=== PATIENT | male | born 1955 | race Two or more races ===

== ENCOUNTER 2024-07-18 07:46 | Inpatient (IN) | payer OTHER ==
[~2024-07-18] VITALS: Ht 190.5 cm; Wt 122.9 kg
[2024-07-18 08:55] LABS: HEMATOCRIT 36.2 % (39.0-48.0); HEMOGLOBIN 12.5 g/dL (13-16.00); MEAN CELL VOLUME 86.3 fL (80.0-100.00); MEAN CORPUSCULAR HEMOGLOBIN 29.8 pg (27.00-32.0); MEAN CORPUSCULAR HGB CONC 34.5 g/dl (32.0-36.0); PLATELET COUNT 175 K/uL (150-450); RED CELL DISTRIBUTION WIDTH 14.4 % (11.5-14.5)
[2024-07-18 09:14] LABS: ERYTHROCYTE SEDIMENTATION RATE 20 mm/hr
[2024-07-18] MEDS ORDERED: MetFORMIN HCL 500 MG TABLET PO SCH (09:24)
[2024-07-18] MEDS ORDERED: OxyCODONE HCL/APAP UD (PERCOCET) PO PRN (09:30)
[2024-07-18] MEDS ORDERED: SODIUM CHLORIDE 0.45 % 1,000 ML IV SCH (09:30)
[2024-07-18 09:33] LABS: URINE APPEARANCE Clear; URINE BILIRRUBIN Negative (NEGATIVE); URINE BLOOD Negative; URINE COLOR Yellow; URINE GLUCOSE Negative (NEGATIVE); URINE KETONE Trace (NEGATIVE); URINE LEUKOCYTE Negative; URINE NITRATE Negative; URINE PROTEIN Negative (NEGATIVE); URINE UROBILINOGEN 0.2 E.U./dl
[2024-07-18 09:39] LABS: URINE EPITHELIAL CELLS 2.9 uL (0.0-38.8); URINE RBC 2.1 uL (0.0-20.8)
[2024-07-18 09:41] LABS: URINE BACTERIA 3.7 uL (0.0-1933); URINE WBC 1.6 uL (0.0-23.2)
[2024-07-18] MEDS ORDERED: ACETAMINOPHEN 500 MG GEL..CAP PO PRN (09:45)
[2024-07-18 09:48] LABS: ALBUMIN 4.3 gm/dL (3.4-5.0); BILIRUBIN TOTAL 0.6 mg/dL (0.3-1.2); C-REACTIVE PROTEIN 0.53 MG/DL (0.00-0.29); CALCIUM 9.7 mg/dL (8.5-10.1); CREATININE SERUM 1.33 mg/dL (0.70-1.30); GFR 53.63; GLOBULINA 3.4 G/DL (2.4-3.5); POTASSIUM 4.56 mEq/L (3.5-5.1); TOTAL PROTEIN 7.7 gm/dL (6.4-8.2); URIC ACID 6.7 mg/dL (3.5-8.5)
[2024-07-18] MEDS ORDERED: LINEZOLID IN DEXTROSE 5% 600 MG/300 ML PIGGYBAG IV NR (10:46)
[2024-07-18] MEDS ORDERED: LACTOBACILLUS ACIDOPHILUS 1 CAP CAP PO SCH (12:00)
[2024-07-18 12:13] VITALS: BP 137/81
[2024-07-18 15:40] VITALS: BP 124/80; O2SAT 98
[2024-07-18] MEDS ORDERED: FAMOtidine 20 MG TABLET PO SCH (17:00)
[2024-07-18] MEDS ORDERED: ELIQUIS5 MG (20:06)
[2024-07-18] MEDS ORDERED: FUROsemide 20 MG/2 ML VIAL ONE (20:38)
[2024-07-18] MEDS ORDERED: GABAPENTIN 400 MG CAPSULE PO SCH (21:00)
[2024-07-18] MEDS ORDERED: FUROsemide 20 MG/2 ML VIAL IV SCH (21:00)
[2024-07-18] MEDS ORDERED: APIXABAN 5 MG TABLET PO SCH (21:00)
[2024-07-18] MEDS ORDERED: LINEZOLID IN DEXTROSE 5% 600 MG/300 ML PIGGYBAG IV SCH (21:00)
[2024-07-19 01:27] VITALS: BP 108/77; O2SAT 99
[2024-07-19 10:26] VITALS: BP 146/78
[2024-07-19 17:10] VITALS: BP 136/83
[2024-07-20 02:00] VITALS: BP 108/67
[2024-07-20 09:45] VITALS: BP 114/76
[2024-07-20 17:08] VITALS: BP 105/98
[2024-07-20] MEDS ORDERED: Pramoxine HCl 15 GM FOAM RECTAL SCH (20:23)
[2024-07-21 02:00] VITALS: BP 144/75
[2024-07-21] MEDS ORDERED: POLYETHYLENE GLYCOL 3350 17 GM BLIST.PACK PO SCH (09:00)
[2024-07-21 09:53] VITALS: BP 159/79; O2SAT 99
[2024-07-21 17:19] VITALS: BP 140/88
[2024-07-22 02:00] VITALS: BP 106/65
[2024-07-22 09:02] VITALS: BP 134/89
[2024-07-22] MEDS ORDERED: CEFTRIAXONE SODIUM 2,000 MG VIAL IV SCH (12:00)
[2024-07-22] MEDS ORDERED: CEFTRIAXONE SODIUM 2,000 MG VIAL IV NR (14:12)
[2024-07-22] MEDS ORDERED: TERBINAFINE HCL 15 GM CREAM..G. TOP SCH (16:51)
[2024-07-22 17:29] VITALS: BP 118/75; O2SAT 95
[2024-07-22 19:57] LABS: HEMATOCRIT 34.3 % (39.0-48.0); HEMOGLOBIN 11.5 g/dL (13-16.00); MEAN CELL VOLUME 86.5 fL (80.0-100.00); MEAN CORPUSCULAR HEMOGLOBIN 28.9 pg (27.00-32.0); MEAN CORPUSCULAR HGB CONC 33.5 g/dl (32.0-36.0); PLATELET COUNT 154 K/uL (150-450); RED BLOOD COUNT 3.97 M/uL (4.00-6.00); RED CELL DISTRIBUTION WIDTH 14.7 % (11.5-14.5)
[2024-07-22 20:26] LABS: ALBUMIN 3.6 gm/dL (3.4-5.0); BILIRUBIN TOTAL 0.34 mg/dL (0.3-1.2); CALCIUM 9.5 mg/dL (8.5-10.1); CREATININE SERUM 1.6 mg/dL (0.70-1.30); GFR 43.33; GLOBULINA 3.4 G/DL (2.4-3.5); POTASSIUM 4.14 mEq/L (3.5-5.1)
[2024-07-22 20:40] LABS: ERYTHROCYTE SEDIMENTATION RATE 61 mm/hr
[2024-07-23 02:24] VITALS: BP 121/70; O2SAT 97
[2024-07-23 09:05] VITALS: BP 138/70; O2SAT 96
[2024-07-23 15:25] VITALS: BP 123/64; O2SAT 97
[2024-07-23] MEDS ORDERED: AMPICILLIN SODIUM/SULBACTAM NA 3,000 MG VIAL IV SCH (18:00)
[2024-07-23] MEDS ORDERED: DIPHENHYDRAMINE HCL 50 MG/ML VIAL 1ML IV STA (19:03)
[2024-07-23] MEDS ORDERED: DIPHENHYDRAMINE HCL 50 MG CAPSULE PO STA (19:07)
[2024-07-23] MEDS ORDERED: 0.9 % SODIUM CHLORIDE 1,000 ML IV SCH (19:15)
[2024-07-23] MEDS ORDERED: DIPHENHYDRAMINE HCL 50 MG/ML VIAL 1ML IV SCH (21:00)
[2024-07-24 02:00] VITALS: BP 101/60; O2SAT 97
[2024-07-24] MEDS ORDERED: DIPHENHYDRAMINE HCL 50 MG CAPSULE PO SCH (05:00)
[2024-07-24 07:35] VITALS: BP 140/80; O2SAT 98
[2024-07-24] MEDS ORDERED: CEFEPIME HCL 2,000 MG VIAL IV SCH (09:00)
[2024-07-24 20:27] VITALS: BP 151/70; O2SAT 97
[2024-07-25 01:36] VITALS: BP 157/80
[2024-07-25 10:19] VITALS: BP 136/76
[2024-07-25] MEDS ORDERED: METFORMIN HCL500 MG PO (13:11)
[2024-07-25] MEDS ORDERED: ELIQUIS5 MG PO (13:11)
[2024-07-25] MEDS ORDERED: FAMOTIDINE20 MG PO (13:11)
[2024-07-25] MEDS ORDERED: NeuRONTin 400MG CAPS PO (13:11)
[2024-07-25] MEDS ORDERED: INTESTINEX680 M1 PO (13:11)
[2024-07-25] MEDS ORDERED: Proctofoam RECTAL (13:11)
[2024-07-25] MEDS ORDERED: TERBINAFINE15 GM TOP (13:11)
[2024-07-25] MEDS ORDERED: LINEZOLID600 MG PO (13:11)
== END 2024-07-25 16:56 | disposition home or self-care (01) | DRG 300 ==
LOC: SEC-K 07:46 → MEDJ 20:19
PROVIDERS: ADMIT Internal Medicine Cardiovascular Disease; ATTEND Internal Medicine Cardiovascular Disease
PROC: 02HV33Z Insertion of Infusion Device into Superior Vena Cava, Percutaneous Approach (ICD-10-PCS; principal; 2024-07-21)
DX: I83.024 Varicose veins of left lower extremity with ulcer of heel and midfoot (principal); L03.116 Cellulitis of left lower limb; L97.429 Non-pressure chronic ulcer of left heel and midfoot with unspecified severity; E11.621 Type 2 diabetes mellitus with foot ulcer; E78.5 Hyperlipidemia, unspecified; Z79.4 Long term (current) use of insulin; I87.2 Venous insufficiency (chronic) (peripheral); B96.83 Acinetobacter baumannii as the cause of diseases classified elsewhere; B96.89 Other specified bacterial agents as the cause of diseases classified elsewhere; Z86.718 Personal history of other venous thrombosis and embolism; E66.9 Obesity, unspecified
CPT/HCPCS: 240

== ENCOUNTER 2025-01-17 14:22 | Inpatient (IN) | payer OTHER ==
[~2025-01-17 14:22] MED LIST: ELIQUIS5 MG; ELIQUIS5 MG PO; FAMOTIDINE20 MG PO; INTESTINEX680 M1 PO; LINEZOLID600 MG PO; METFORMIN HCL500 MG PO; NeuRONTin 400MG CAPS PO; Proctofoam RECTAL; TERBINAFINE15 GM TOP
[2025-01-17 15:24] LABS: HEMATOCRIT 36.8 % (39.0-48.0); HEMOGLOBIN 12.4 g/dL (13-16.00); MEAN CELL VOLUME 82.6 fL (80.0-100.00); MEAN CORPUSCULAR HEMOGLOBIN 27.9 pg (27.00-32.0); MEAN CORPUSCULAR HGB CONC 33.8 g/dl (32.0-36.0); PLATELET COUNT 188 K/uL (150-450); RED BLOOD COUNT 4.46 M/uL (4.00-6.00); RED CELL DISTRIBUTION WIDTH 17.1 % (11.5-14.5)
[2025-01-17 15:29] LABS: PH,URINE 5.5 (5.0-8.0); URINE APPEARANCE Clear; URINE BILIRRUBIN Negative (NEGATIVE); URINE BLOOD Negative; URINE COLOR Yellow; URINE GLUCOSE Negative (NEGATIVE); URINE KETONE Trace (NEGATIVE); URINE LEUKOCYTE Negative; URINE NITRATE Negative; URINE PROTEIN Negative (NEGATIVE)
[2025-01-17 15:40] LABS: URINE BACTERIA 20.7 uL (0.0-1933); URINE EPITHELIAL CELLS 1.4 uL (0.0-38.8); URINE RBC 4.4 uL (0.0-20.8); URINE WBC 2.5 uL (0.0-23.2)
[2025-01-17 15:40] LABS: INR 1.04; PARTIAL THROMBOPLASTIN TIME 25.6 SECONDS (22.0-34.0); PROTHROMBIN TIME 11.3 SECONDS (9.0-11.5)
[2025-01-17 15:44] LABS: URINE CAST 0.29 uL (0.0-1.40)
[2025-01-17 15:48] LABS: BILIRUBIN TOTAL 0.58 mg/dL (0.3-1.2); CALCIUM 9.1 mg/dL (8.5-10.1); CREATININE SERUM 1.54 mg/dL (0.70-1.30); GFR 45.28; GLOBULINA 4.3 G/DL (2.4-3.5); POTASSIUM 4.19 mEq/L (3.5-5.1); TOTAL PROTEIN 8.3 gm/dL (6.4-8.2)
[2025-01-17 15:59] LABS: C-REACTIVE PROTEIN 0.75 MG/DL (0.00-0.29)
[2025-01-17 16:00] VITALS: BP 137/62; O2SAT 95
[2025-01-17 16:06] LABS: ERYTHROCYTE SEDIMENTATION RATE 76 mm/hr
[2025-01-17] MEDS ORDERED: LINEZOLID IN DEXTROSE 5% 600 MG/300 ML PIGGYBAG IV SCH (18:31)
[2025-01-17] MEDS ORDERED: FAMOtidine 20 MG TABLET PO SCH (18:34)
[2025-01-17] MEDS ORDERED: FUROsemide 20 MG/2 ML VIAL IV SCH (18:40)
[2025-01-17] MEDS ORDERED: CLOTRIMAZOLE 30 GM TUBE TOP SCH (18:44)
[2025-01-17] MEDS ORDERED: ACETAMINOPHEN 500 MG GEL..CAP PO PRN (18:45)
[2025-01-17] MEDS ORDERED: TEMAZEPAM 15 MG CAPSULE PO PRN (18:45)
[2025-01-17] MEDS ORDERED: ENOXAPARIN SODIUM 40 MG/0.4 ML SYRINGE SUBCUTANEO SCH (18:45)
[2025-01-17] MEDS ORDERED: SODIUM CHLORIDE 0.45 % 1,000 ML IV SCH (19:00)
[2025-01-17] MEDS ORDERED: GABAPENTIN 600 MG TABLET PO SCH (21:00)
[2025-01-18 00:39] VITALS: BP 117/70; O2SAT 95
[2025-01-18] MEDS ORDERED: LACTOBACILLUS ACIDOPHILUS 1 CAP CAP PO SCH (09:00)
[2025-01-18] MEDS ORDERED: VITAMIN B COMPLEX 1 EACH PO SCH (09:00)
[2025-01-18] MEDS ORDERED: CHLORHEXIDINE GLUCONATE 120 ML BOTTLE TOP SCH (09:33)
[2025-01-18] MEDS ORDERED: MEROPENEM 500 MG/VIAL VIAL IV SCH ×2 (09:45→13:00)
[2025-01-18 15:03] VITALS: BP 150/73; O2SAT 99
[2025-01-18 16:00] VITALS: BP 131/79; O2SAT 99
[2025-01-18] MEDS ORDERED: TEMAZEPAM 15 MG CAPSULE PO PRN (23:42)
[2025-01-19 01:11] VITALS: BP 133/76; O2SAT 95
[2025-01-19 13:09] VITALS: BP 147/83; O2SAT 99
[2025-01-19 16:17] VITALS: BP 123/70; O2SAT 96
[2025-01-19] MEDS ORDERED: EMOLLIENTS 6 OZ BOTTLE TOP SCH (21:00)
[2025-01-20 00:38] VITALS: BP 115/66; O2SAT 95
[2025-01-20] MEDS ORDERED: HYDROCORTISONE 0.5% TOP SCH (09:00)
[2025-01-20 10:17] VITALS: BP 131/71; O2SAT 97
[2025-01-20 15:56] VITALS: BP 136/72; O2SAT 97
[2025-01-20] MEDS ORDERED: NAPHAZOLINE HCL/PHENIRAMINE 20 DR/ML DROPS OP SCH (18:07)
[2025-01-20] MEDS ORDERED: LINEZOLID 600 MG TABLET PO SCH (21:00)
[2025-01-21] VITALS: BP 119/60; O2SAT 96
[2025-01-21 08:00] VITALS: BP 123/66; O2SAT 95
[2025-01-22 00:37] VITALS: BP 128/74; O2SAT 98
[2025-01-22 08:00] VITALS: BP 126/67; O2SAT 96
[2025-01-22 16:41] VITALS: BP 149/78; O2SAT 97
[2025-01-23 00:14] VITALS: BP 138/73; O2SAT 94
[2025-01-23 08:34] LABS: HEMATOCRIT 39.5 % (39.0-48.0); HEMOGLOBIN 13.1 g/dL (13-16.00); MEAN CELL VOLUME 83.8 fL (80.0-100.00); MEAN CORPUSCULAR HEMOGLOBIN 27.8 pg (27.00-32.0); MEAN CORPUSCULAR HGB CONC 33.1 g/dl (32.0-36.0); PLATELET COUNT 214 K/uL (150-450); RED BLOOD COUNT 4.71 M/uL (4.00-6.00); RED CELL DISTRIBUTION WIDTH 16.6 % (11.5-14.5)
[2025-01-23 08:50] VITALS: BP 129/83; O2SAT 95
[2025-01-23 09:05] LABS: ERYTHROCYTE SEDIMENTATION RATE 64 mm/hr
[2025-01-23 09:18] LABS: BILIRUBIN TOTAL 0.49 mg/dL (0.3-1.2); CALCIUM 9.5 mg/dL (8.5-10.1); CREATININE SERUM 1.34 mg/dL (0.70-1.30); GFR 53.17; GLOBULINA 4.5 G/DL (2.4-3.5); POTASSIUM 4.64 mEq/L (3.5-5.1); TOTAL PROTEIN 8.5 gm/dL (6.4-8.2)
[2025-01-23 16:19] VITALS: BP 130/58; O2SAT 95
[2025-01-24 00:30] VITALS: BP 141/79; O2SAT 99
[2025-01-24 08:54] VITALS: BP 128/73; O2SAT 98
[2025-01-24 16:50] VITALS: BP 138/69; O2SAT 95
[2025-01-25] VITALS: BP 142/71; O2SAT 97
[2025-01-25 08:53] VITALS: BP 133/87; O2SAT 95
[2025-01-25 16:00] VITALS: BP 122/72; O2SAT 98
[2025-01-25] MEDS ORDERED: GENTAMICIN SULFATE TOP SCH (23:53)
[2025-01-26] MEDS ORDERED: SIMETHICONE 125 MG CAPSULE PO SCH (00:15)
[2025-01-26 01:56] VITALS: BP 139/80; O2SAT 94
[2025-01-26 08:55] VITALS: BP 138/88; O2SAT 96
[2025-01-26] MEDS ORDERED: SULFAMETHOXAZOLE/TRIMETHOPRIM DS 1 TAB PO SCH (11:05)
[2025-01-26 16:00] VITALS: BP 131/70; O2SAT 97
[2025-01-26] MEDS ORDERED: DIPHENHYDRAMINE HCL 50 MG CAPSULE PO STA (20:22)
[2025-01-27] VITALS: BP 130/71; O2SAT 96
[2025-01-27 08:00] VITALS: BP 132/74; O2SAT 98
[2025-01-27] MEDS ORDERED: DIPHENHYDRAMINE HCL 50 MG/ML VIAL 1ML IV STA (20:13)
[2025-01-27] MEDS ORDERED: METHYLPREDNISOLONE SOD SUCC 125 MG VIAL IV STA (20:46)
[2025-01-27] MEDS ORDERED: DIPHENHYDRAMINE HCL 25 MG CAPSULE PO PRN (21:00)
[2025-01-28] VITALS: BP 115/65; O2SAT 97
[2025-01-28 08:51] VITALS: BP 150/80; O2SAT 96
[2025-01-28 16:00] VITALS: BP 162/66; O2SAT 95
[2025-01-29 00:45] VITALS: BP 139/85; O2SAT 100
[2025-01-29 08:57] VITALS: BP 109/63; O2SAT 99
[2025-01-29 16:30] VITALS: BP 154/79; O2SAT 95
[2025-01-30 00:51] VITALS: BP 149/77; O2SAT 98
[2025-01-30 08:46] VITALS: BP 149/88; O2SAT 98
[2025-01-30 16:00] VITALS: BP 140/83; O2SAT 94
[2025-01-30] MEDS ORDERED: NAPHCON A EYE OP (20:26)
[2025-01-30] MEDS ORDERED: CLOTRIMAZOLE45 G1 TOP (20:26)
[2025-01-30] MEDS ORDERED: PLAVIX75 MG PO (20:26)
[2025-01-30] MEDS ORDERED: INTESTINEX680 M1 PO (20:26)
[2025-01-30] MEDS ORDERED: RESTORIL15 MG PO (20:26)
[2025-01-30] MEDS ORDERED: CHLORHEXIDINE118 M1 TOP (20:26)
[2025-01-30] MEDS ORDERED: NEURONTIN600 MG PO (20:26)
[2025-01-30] MEDS ORDERED: NASAL MIST126 ML NASAL (20:26)
[2025-01-30] MEDS ORDERED: DIPHENHYDRAMINE25 M3 PO (20:26)
[2025-01-30] MEDS ORDERED: DORYX200 MG PO (20:29)
== END 2025-01-30 21:23 | disposition home or self-care (01) | DRG 264 ==
LOC: SURG 14:22 → SEC-K 14:22 → SURG 15:45 → SURH 01-21 15:25
PROVIDERS: ADMIT Internal Medicine Cardiovascular Disease; ATTEND Internal Medicine Cardiovascular Disease
PROC: 8E0ZXY6 Isolation (ICD-10-PCS; 2025-01-17)
PROC: 0JBP0ZZ Excision of Left Lower Leg Subcutaneous Tissue and Fascia, Open Approach (ICD-10-PCS; principal; 2025-01-30)
PROC: 0JBN0ZZ Excision of Right Lower Leg Subcutaneous Tissue and Fascia, Open Approach (ICD-10-PCS; 2025-01-30)
DX: I83.018 Varicose veins of right lower extremity with ulcer other part of lower leg (principal); I82.403 Acute embolism and thrombosis of unspecified deep veins of lower extremity, bilateral; Z16.12 Extended spectrum beta lactamase (ESBL) resistance; L97.819 Non-pressure chronic ulcer of other part of right lower leg with unspecified severity; L97.829 Non-pressure chronic ulcer of other part of left lower leg with unspecified severity; I83.028 Varicose veins of left lower extremity with ulcer other part of lower leg; E11.610 Type 2 diabetes mellitus with diabetic neuropathic arthropathy; E11.622 Type 2 diabetes mellitus with other skin ulcer; E11.51 Type 2 diabetes mellitus with diabetic peripheral angiopathy without gangrene; E11.42 Type 2 diabetes mellitus with diabetic polyneuropathy; Z79.4 Long term (current) use of insulin; Z22.358 Carrier of other Enterobacterales; Z22.39 Carrier of other specified bacterial diseases; Z88.1 Allergy status to other antibiotic agents; A49.9 Bacterial infection, unspecified; B35.3 Tinea pedis; G62.89 Other specified polyneuropathies; I87.2 Venous insufficiency (chronic) (peripheral); B96.20 Unspecified Escherichia coli [E. coli] as the cause of diseases classified elsewhere; B96.89 Other specified bacterial agents as the cause of diseases classified elsewhere; B95.2 Enterococcus as the cause of diseases classified elsewhere; B96.4 Proteus (mirabilis) (morganii) as the cause of diseases classified elsewhere
CPT/HCPCS: 240

== ENCOUNTER 2025-06-10 06:20 | Day surgery (SDC) | payer OTHER ==
[~2025-06-10 06:20] MED LIST changes: +CHLORHEXIDINE118 M1 TOP; +CLOTRIMAZOLE45 G1 TOP; +DIPHENHYDRAMINE25 M3 PO; +DORYX200 MG PO; +NAPHCON A EYE OP; +NASAL MIST126 ML NASAL; +NEURONTIN600 MG PO; +PLAVIX75 MG PO; +RESTORIL15 MG PO
[2025-06-10] MEDS ORDERED: DIPHENHYDRAMINE HCL 50 MG/ML VIAL 1ML IV ONE (13:45)
[2025-06-10] MEDS ORDERED: MIDAZOLAM HCL 2 MG/2 ML VIAL IV ONE (13:45)
[2025-06-10] MEDS ORDERED: fentaNYL CITRATE 50 MCG/ML AMPUL IV PUSH ONE (13:45)
== END 2025-06-10 12:50 | disposition home or self-care (01) ==
LOC: AMB-ENDOS 06:20
PROVIDERS: ATTEND Colon & Rectal Surgery
DX: D12.2 Benign neoplasm of ascending colon (principal); K57.30 Diverticulosis of large intestine without perforation or abscess without bleeding; K58.9 Irritable bowel syndrome, unspecified; K63.5 Polyp of colon; Z86.0100 Personal history of colon polyps, unspecified